=== PATIENT | male | born 1960 | race Caucasian/White ===

== ENCOUNTER 2021-11-06 08:04 | Emergency (ER) | payer OTHER, SELFPAY ==
[2021-11-06 08:09] VITALS: BP 152/84; PULSE 66; RESP 16; TEMP 36.8; O2SAT 98
--- NOTE | 2021-11-06 08:09 | ED.GENADULT ---
HPI - General Adult General Chief complaint: Ear Stated complaint: ear pain Time Seen by Provider: 11/06/21 08:10 Source: patient Mode of arrival: ambulatory Limitations: no limitations History of Present Illness HPI narrative: 7-year-old male patient presents to the [facility] with complaints of left ear pain for the past 2 months. Patient states he had an issue with his left ear back in August and emailed his doctor. Patient states he never actually saw his doctor but his doctor did send him an antibiotic for 10 days. Patient states that it did improve but felt like it never went away. Patient states it continues to have aching pain it hurts when he touches his ear and feels like he is got decreased hearing and ringing to the ear. Denies taking any Tylenol or ibuprofen. Denies any discharge coming from the ear. Denies any trauma to the ear. Related Data Home Medications Medication Instructions Recorded Confirmed escitalopram oxalate 10 mg PO DAILY 11/06/21 11/06/21 levothyroxine [Euthyrox] 100 mcg PO DAILY 11/06/21 11/06/21 lisinopril-hydrochlorothiazide 1 tablet PO DAILY 11/06/21 11/06/21 pravastatin 20 mg PO DAILY 11/06/21 11/06/21 testosterone 1 pump TOPICAL DAILY 11/06/21 11/06/21 Allergies Allergy/AdvReac Type Severity Reaction Status Date / Time shellfish derived Allergy Unknown SCRATCHY Verified 11/06/21 08:09 THROAT Review of Systems Review of Systems: CONSTITUTIONAL: Denies fever, chills, or sweats. EYES: Denies visual changes, redness, or discharge. ENT: Denies rhinorrhea, congestion, sore throat, positive left otalgia. CARDIOVASCULAR: Denies chest pain, palpitations, or edema. RESPIRATORY: Denies cough or dyspnea. GASTROINTESTINAL: Denies abdominal pain, nausea, vomiting, or diarrhea. GENITOURINARY: Denies dysuria or hematuria. SKIN: Denies rash or itching. MUSCULOSKELETAL: Denies back pain, joint pain, or myalgia. NEUROLOGIC: Denies headache, numbness, or weakness. PSYCHIATRIC: Denies anxiety or depression. [facility] Past Medical History Medical History (Updated 11/06/21 @ 08:23 by LAITH Wiley) Hypercholesteremia Hypertension Hypothyroidism Surgical History Surgical History (Updated 11/06/21 @ 08:11 by LAITH Wiley) History of orthopedic surgery Left leg/nose surgery Comments At the time of my signature I agree with nursing past medical history, surgical, social, and family history. There is no relevant family history pertinent to the presenting complaint. Exam Narrative: GENERAL: Well-appearing, well-nourished, and in no acute distress. HEAD: Normocephalic, atraumatic. EYES: PERRLA and EOMI. ENT: Nares clear, no rhinorrhea or epistaxis. Mucous membranes moist. Right tympanic membrane is normal. The left ear does have some erythema noted around the canal near the tympanic membrane. The tympanic membrane does look dull with possibly some fluid behind the ear with slight erythema. NECK: Supple. No lymphadenopathy CHEST: Clear to auscultation. No respiratory distress. HEART: Regular rate and rhythm. No murmur heard. Normal peripheral pulses. ABDOMEN: Soft, nontender, nondistended, normal active bowel sounds. EXTREMITIES: Normal range of motion. No edema. SKIN: Warm, dry, no rash. NEURO: No focal deficits. Alert and oriented x3. Course Course Level of Care: Express Care Visit Vital Signs Vital signs: Vital Signs Temperature 36.8 C 11/06/21 08:09 Pulse Rate 66 11/06/21 08:09 Respiratory Rate 16 11/06/21 08:09 Blood Pressure 152/84 H 11/06/21 08:09 Pulse Oximetry 98 11/06/21 08:09 Temperature 36.8 C 11/06/21 08:09 Pulse Rate 66 11/06/21 08:09 Respiratory Rate 16 11/06/21 08:09 Blood Pressure 152/84 H 11/06/21 08:09 Pulse Oximetry 98 11/06/21 08:09 Vital signs reviewed The patient has been informed that they may have pre-hypertension or Hypertension based on a BP reading in the department. I recommend that the patient call
== END 2021-11-06 08:35 | disposition home or self-care (01) ==
PROVIDERS: Emergency Provider Nurse Practitioner Family; PCP Internal Medicine
DX: H60.92 Unspecified otitis externa, left ear (principal); E78.00 Pure hypercholesterolemia, unspecified; I10 Essential (primary) hypertension; E03.9 Hypothyroidism, unspecified
CPT/HCPCS: 99203; G0463